=== PATIENT | male | born 1950 | race African-American/Black ===

== ENCOUNTER 2017-02-20 06:38 | Outpatient (CLI) | payer MEDICARE, MEDICAID ==
[~2017-02-20] VITALS: Ht 177.8 cm; Wt 88.6 kg
--- NOTE | ~2017-02-20 | HEMODYNAMI ---
PATIENT:ELIO COHEN MEDICAL RECORD: [id number] : 54 LOCATION:D.CAT ADMISSION DATE: 02/20/17 Generatedon:02/20/20179:20 Patient name: ELIO COHEN Patient #: [id number] SSN: D OB: 1950 Date of study: 02/20/2017 Page: Of Hemodynamic Procedure Report Patient Data Patient Demographics Procedure consent was obtained First Name: ELIO Gender: Male Last Name: VICKI : 1950 Middle Initial: MADAN Age: 66 year(s) Patient #: [id number] Race: Black Additional ID: [id number] Contact details Address: [address] [place] [address] State: [place] City: [facility] Zip code: [address] Past Medical History Allergies Allergen Reaction Date Comments Reported Other allergy 02/20/2017 LEXAPRO Admission Admission Data Admission Date: 02/20/2017 Admission Time: 6:38 Height (in.): 70 BSA: 2.06 (m2) Height (cm.): 177.8 BMI: 27.98 (kg/m2) Weight (lbs.): 195 Weight (kg.): 88.45 Lab Results Lab Result Date: 02/20/2017 Lab Result Time: 7:45 Biochemistry Name Units Result Min Max BUN mg/dl 17 --(---*)-- 7 18 Creatinine mg/dl 1.4 --(----)*- 0.6 1.3 CBC Name Units Result Min Max Hematocrit % 41.2 -*(----)-- 42 54 Hemoglobin g/dl 14 --(*---)-- 13.5 17.5 Procedure Procedure Types Cath Procedure Diagnostic Procedure [facility] ED w/Coronaries Miscellaneous Procedures Moderate Sedation up to 15 minutes Procedure Description Procedure Date Procedure Date: 02/20/2017 Procedure Start Time: 9:08 Procedure End Time: 9:19 Procedure Staff Name Function Daquan Varela MD Performing Physician Nyla Torres RN Nurse Yemi Francis RT Monitor Odilon Dutton RT Scrub Procedure Data Cath Procedure Fluoroscopy Diagnostic fluoroscopy Total fluoroscopy Time: 1.6 time: 1.6 min min Diagnostic fluoroscopy Total fluoroscopy dose: 415 dose: 415 mGy mGy Contrast Material Contrast Material Type Amount (ml) Isovue 300 57 Entry Location Entry Primary Successful Side Size Upsize Upsize Entry Closure Arango ccessful Closure Location (Fr) 1 (Fr) 2 (Fr) Remarks Device Remarks Radial Right 6 Fr Mechanical artery Short Compression Estimated blood loss: 5 ml Diagnostic catheters Device Type Used For End Catheter Placement Terumo 5Fr Jonathan 110cm Procedure catheter Procedure Complications No complications Procedure Medications Medication Administration Route Dosage Oxygen NC 2 l/min Heparin Flush Bag added to field 2 bags (1000units/500ml NS) Lidocaine 2% added to field 20 Radial Cocktail added to field 1 syringe (Verapomil 2mg/Nitro 400mcg/Heparin 1500units) Versed I.V. 1 mg Fentanyl I.V. 50 mcg Radial Cocktail I.A. 1 syringe (Verapomil 2mg/Nitro 400mcg/Heparin 1500units) Versed I.V. 0.5 mg Fentanyl I.V. 25 mcg Hemodynamics Rest BSA: 2.06 (m2) HGB: 14 (g/dl) O2 Consumption: Estimated: 203.29 (ml/min) O2 Cons umption indexed: Estimated:98.68 (ml/min/m) Heart Rate: 22 (bpm) Pressure Samples Time Site Value (mmHg) Purpose Heart Use Rate(bpm) 9:12 LV 88/3,13 Snapshot 63 9:13 AO 84/52(66) Pullback 49 Gradients Valve Time Site Site 2 Mean SEP/DFP Peak To Heart Use 1 (mmHg) (sec/min) Peak Rate (mmHg) (bpm) Aortic 9:13 LV AO 20 5 49 84/52(66) Calculations Valve P-P Mean Valve Index Valve Source Name Gradient Area Flow (cm2) Aortic 20 20 Snapshots Pre Cath Intra NCS Post Cath Vital Signs Time Heart Resp SPO2 NIBP Rhythm Pain Sedation Rate (ipm) (%) (mmHg) Status Level (bpm) 8:52:54 55 15 99 121/81(94) NSR 0 (11) 10(A) , No pain 8:57:00 53 17 100 109/83(93) NSR 0 (11) 10(A) , No pain 9:01:04 53 17 99 107/74(90) NSR 0 (11) 10(A) , No pain 9:05:12 53 16 96 106/61(77) NSR 0 (11) 10(A) , No pain 9:09:17 54 16 95 98/64(75) NSR 0 (11) 9(A) , No pain 9:13:25 58 16 95 83/49(77) NSR 0 (11) 9(A) , No pain 9:17:25 58 16 96 101/54(68) NSR 0 (11) 9(A) , No pain Medications Time Medication Route Dose Verified Delivered Reason Notes E ffectiveness by by 8:50:38 Oxygen NC 2 l/min Daquan Nyla Per Avery Torres RN physician 8:50:46 Heparin Flush added 2 bags Daquan Daquan used for Bag to Avery Varela MD procedure (1000units/500ml field NS) 8:50:54 Lidocaine 2% added 20ml Daquan Daquan used for to vial Avery Varela MD procedure field 8:51:00 Radial Cocktail added 1 Daquan Daquan used for (Verapomil to syringe Avery Varela MD procedure 2mg/Nitro field 400mcg/Heparin 1500units) 9:01:35 Versed I.V. 1 mg Daquan Nyla for sedation Avery Torres RN 9:01:41 Fentanyl I.V. 50 mcg Daquan Nyla for sedation Avery Torres RN 9:07:32 Versed I.V. 0.5 mg Daquan Nyla for sedation Avery Torres RN 9:07:47 Fentanyl I.V. 25 mcg Daquan Nyla for sedation Avery Torres RN 9:11:21 Radial Cocktail I.A. 1 Daquan Daquan for (Verapomil syringe Avery Varela MD vasodilation 2mg/Nitro 400mcg/Heparin 1500units) Procedure Log Time Note 8:34:57 Odilon Dutton RT(R) sent for patient. Start room use. 8:34:58 Time tracking: Regular hours 8:35:01 Plan of Care:Hemodynamics will remain stable., Cardiac rhythm will remain stable., Comfort level will be maintained., Respiratory function will remain adequate., Patient/ family verbilizes understanding of procedure., Procedure tolerated without complication., Recovers from procedure without complications.. 8:47:45 Patient received from Pre/Post Procedure Room to CCL 2 Alert and oriented. Tansferred to table in Supine position. 8:47:46 Warm blankets applied, and rita hugger turned on for patient comfort. 8:47:47 Correct patient and procedure confirmed by team. 8:47:48 Signed procedure consent form obtained from patient. 8:47:49 ECG and BP/O2 sat monitors applied to patient. 8:50:27 Vital chart was started 8:50:38 Oxygen 2 l/min NC was administered by Nyla Torres RN; Per physician; 8:50:46 Heparin Flush Bag (1000units/500ml NS) 2 bags added to field was administered by Daquan Varela MD; used for procedure; 8:50:54 Lidocaine 2% 20ml vial added to field was administered by Daquan Varela MD; used for procedure; 8:51:00 Radial Cocktail (Verapomil 2mg/Nitro 400mcg/Heparin 1500units) 1 syringe added to field was administered by Daquan Varela MD; used for procedure; 8:56:11 Baseline sample Acquired. 8:56:24 Rhythm: sinus bradycardia 8:56:26 Full Disclosure recording started 8:56:55 H&P Date Dictated: 02/20/2017 Within 30 days and on chart.. 8:57:00 Pre-procedure instructions explained to patient. 8:57:01 Pre-op teaching completed and patient verbalized understanding. 8:57:04 Family unavailable. 8:57:07 Patient NPO since Midnight. 8:57:44 Patient allergic to Other allergyLEXAPRO 8:57:51 Is the patient allergic to Iodine/contrast media? No. 8:57:55 Is patient on blood thinner?No 8:57:59 Patient diabetic? No. 8:58:02 ----Pre-sedation anethsthesia assessment.---- 8:58:05 Previous problem with sedation/anesthesia? No ? 8:58:07 Snore? Yes 8:58:09 Sleep apnea? No 8:58:10 Deviated septum? No 8:58:11 Opens mouth fully? Yes 8:58:12 Sticks out tongue? Yes 8:58:15 Airway obstruction? No ? 8:58:18 Dentures? No ? 8:58:28 Modified Zuhair's test Ulnar < 7 seconds 8:58:31 Patient pain scale 0/10 ?. 8:58:37 IV patent on arrival in left forearm with 0.9% NaCl at [facility]. 9:00:29 Lab Result : BUN 17 mg/dl 9:00:29 Lab Result : Hemoglobin 14 g/dl 9:00:29 Lab Result : Creatinine 1.4 mg/dl 9:00:29 Lab Result : Hematocrit 41.2 % 9:00:32 Lab results completed and on chart. 9:00:34 Right Radial & Right Groin area was prepped with chlora-prep and draped in sterile fashion 9:00:35 Alarms reviewed by R. N. 9:00:35 Sharps counted by scrub and verified by R.N. 9:00:42 Use device set Radial Dx 9:00:43 MBrace Wrist Support opened to sterile field. 9:00:43 Tegaderm 4 x 4 opened to sterile field. 9:00:45 Acist Hand Control opened to sterile field. 9:00:45 Acist Manifold opened to sterile field. 9:00:46 Acist Syringe opened to sterile field. 9:00:47 Medline Cath Pack opened to sterile field. 9:00:47 Bag Decanter opened to sterile field. 9:00:48 Terumo 6Fr Slender Glidesheath opened to sterile field. 9:00:48 St See 260cm J .035 wire opened to sterile field. 9:00:57 Cook 21G 4cm Radial Needle opened to sterile field. 9:01:04 Physician arrived 9:01:05 --------ALL STOP TIME OUT------ 9:01:05 Final Timeout: patient, procedure, and site verified with staff and physician. All members of the team are in agreement. 9:01:07 Right Radial & Right Groin site verified by team. 9:01:10 Physical assessment completed. ASA score P 2 - A patient with mild systemic disease as per Daquan Varela MD. 9:01:12 Sedation plan: IV Moderate Sedation Versed, Fentanyl 9::35 Versed 1 mg I.V. was administered by Nyla Hitchcock RN; for sedation; 9:01:41 Fentanyl 50 mcg I.V. was administered by Nyla Torres RN; for sedation; 9::54 Patient Weight : 88.45 kg 9:02:02 Patient Height : 177.8 cm 9:07:32 Versed 0.5 mg I.V. was administered by Nyla Torres RN; for sedation; 9::47 Fentanyl 25 mcg I.V. was administered by Nyla Torres RN; for sedation; 9:08:09 Zero performed for pressure channel P1 9:08:18 Procedure started. 9:08:27 Local anesthetic to right radial artery with Lidocaine 2% by Daquan Varela MD.INITIAL ACCESS ONLY 9:10:46 A 6 Fr Short sheath was inserted into the Right Radial artery 9:11:21 Radial Cocktail (Verapomil 2mg/Nitro 400mcg/Heparin 1500units) 1 syringe I.A. was administered by Daquan Varela MD; for vasodilation; 9:11:23 A [employer] 5Fr Jonathan 110cm catheter was advanced over the wire and used for Procedure. 9:13:03 LV gram done using ROSSI 9:13:07 Injector settings: Ml/sec: 5, Volume: 15, 9:13:21 EF : 45 % 9:14:03 RCA angiography performed. 9:15:22 LCA angiography performed. 9:16:02 Catheter removed. 9:16:49 Sheath removed intact; hemostasis achieved with Mechanical Compression to the Right Radial artery. 9:16:51 Procedure ended.(Physican Out) 9:17:00 Fluoroscopy time 01.60 minutes. 9:17:05 Fluoroscopy dose: 415 mGy 9:17:05 Flurop Dose total: 415 9:17:56 Contrast amount:Isovue 300 57ml. 9:17:57 Sharps counted by scrub and verified by R.N. 9:17:59 TR band inflated with 12cc of air. 9:18:00 Insertion/operative site no bleeding no hematoma. 9:18:10 Post right radial artery:stable, soft, clean and dry 9:18:13 Post-procedure physical assessment completed. ASA score P 2 - A patient with mild systemic disease as per Daquan Varela MD. 9:18:15 Post procedure rhythm: unchanged. 9:18:18 Estimated blood loss: 5 ml 9:18:19 Post procedure instruction explained to patient.Patient verbalizes understanding. 9:18:19 Patient needs reinforcement of post procedure teaching. 9:19:43 Procedure and supply charges have been captured, reviewed, submitted and are correct. 9:19:45 Procedure Complication : No complications 9:19:47 Vital chart was stopped 9:19:48 See physician's report for complete and final results. 9:19:54 Report given to Pre/Post Procedure Room. 9:19:57 Patient transfered to Pre/Post Procedure Room with Stretcher. 9:19:59 Procedure ended. 9:19:59 Full Disclosure recording stopped 9:20:12 End room use (Document Last) Device Usage Item Name Manufacture Quantity Catalog Hospital Part Current Minimal Lot# / Number Charge Number Stock Stock Serial# Code [facility] 1 140-0250-00 [id number] 5 Wrist Vascular Support Dynamics Tegaderm 4 3M 1 [id number] [id number] 577507 5 x 4 Acist Hand Acist 1 08819 963059 445588 089052 5 Control [employer] Inc Acist Acist 1 52049 174545 258427 235397 5 Manifold [employer] Inc Acist Acist 1 61060 263262 431408 074387 20 Syringe Medical [employer] Inc Medline Cardinal 1 [id number] 037252 30585 133050 5 Cath Pack Health Bag Microtek 1 2002S 927666 19562 268356 5 [employer] Terumo 6Fr Terumo 1 [id number] 931047 822562 976145 [address] See 1 [id number] 958624 028265 398170 30 260cm J .035 wire Cook 21G Cook Medical 1 [id number] 767413 151505 658983 5 4cm Radial Needle Terumo 5Fr Terumo 1 [id number] 022260 942238 638157 5 Jonathan 110cm catheter Signature Audit Lillian Stage Time Signature Unsigned Intra-Procedure 02/20/2017 Yemi Francis 9:20:37 AM RT(R) Signatures Monitor : Yemi Francis RT Signature : Date : Time : [facility] [address] [place] [address]
[2017-02-20] MEDS ORDERED: BENICAR HCT 40-1 TAB PO (07:18)
[2017-02-20] MEDS ORDERED: DESERYL100 MG PO (07:19)
[2017-02-20] MEDS ORDERED: COREG6.25 MG PO (07:19)
[2017-02-20] MEDS ORDERED: LAMICTAL100 MG PO (07:19)
[2017-02-20] MEDS ORDERED: LOVASTATIN20 MG PO (07:20)
[2017-02-20] MEDS ORDERED: SINGULAIR10 MG PO (07:20)
[2017-02-20] MEDS ORDERED: FLUTICASONE PRO16 GM NASAL (07:20)
[2017-02-20] MEDS ORDERED: FISH OIL 1,0001 CA1 PO (07:21)
[2017-02-20] MEDS ORDERED: BAYER CHEWABLE81 MG PO (07:21)
[2017-02-20] MEDS ORDERED: HYDROCODONE-APA1 TAB PO (07:21)
[2017-02-20] MEDS ORDERED: DHEA25 M1 PO (07:22)
[2017-02-20] MEDS ORDERED: FLINTSTONE1 TAB.CHEW PO (07:22)
[2017-02-20] MEDS ORDERED: VISTARIL25 MG PO (07:23)
[2017-02-20 07:24] VITALS: BP 119/78; Ht 177.8 cm; Wt 88.6 kg
[2017-02-20 07:49] LABS: BASOPHILS 0.2 % (0-2); EOSINOPHILS 5.7 % (0-7); HEMATOCRIT 41.2 % (42.0-54.0); LYMPHOCYTES 31.6 % (15-50); MCH 30.7 pg (26.0-34.0); MCV 90.4 fL (80.0-100.0); MEAN PLATELET VOLUME 10.4 fL (7.4-10.4); MONOCYTES 11.9 % (2-11); NEUTROPHILS 50.6 % (40-80); PLATELET COUNT 161 10x3/uL (130-400); RBC 4.56 10x6/uL (4.20-6.10); RDW 12.9 % (11.5-14.5); WBC 5.1 10x3/uL (4.8-10.8)
[2017-02-20 07:56] LABS: CALCIUM 8.6 mg/dL (8.5-10.1); CARBON DIOXIDE 27.7 mmol/L (21.0-32.0); CREATININE - SERUM 1.4 mg/dL (0.6-1.3); POTASSIUM - SERUM 3.7 mmol/L (3.5-5.1)
--- NOTE | 2017-02-20 09:50 | NUR ---
2L NC, NO RESP DISTRESS NOTED. NO C/O CHEST PAIN OR NAUSEA. RIGHT WRIST TRACELET IN PLACE, NO BLEEDING OR HEMATOMA NOTED. VSS.
--- NOTE | 2017-02-20 10:20 | NUR ---
2L NC, NO RESP DISTRESS NOTED. VSS. RIGHT WRIST TRACELET IN PLACE, NO BLEEDING NOTED. NO C/O CHEST PAIN OR NAUSEA. WILL CONTINUE TO MONITOR.
--- NOTE | 2017-02-20 10:35 | NUR ---
QUIETLY RESTING WITH EYES CLOSED. VSS. 2L NC, NO RESP DISTRESS NOTED. BRIEFCASE SEWER SHOWS SB @ 51. RIGHT WRIST TRACLET CDI, NO BLEEDING NOTED. CALL LIGHT WITHIN REACH.
--- NOTE | 2017-02-20 11:09 | NUR ---
2CC OF AIR REMOVED FROM TRACELET. NO BLEEDING NOTED.
--- NOTE | 2017-02-20 11:20 | NUR ---
2CC OF AIR REMOVED FROM TRACELET. NO BLEEDING NOTED.
--- NOTE | 2017-02-20 11:35 | NUR ---
3CC OF AIR REMOVED FROM TRACELET.
--- NOTE | 2017-02-20 11:47 | NUR ---
2CC OF AIR REMOVED FROM TRACELET, NO BLEEDING NOTED. LEFT HAND PIV D/C'D WITH CATHETER INTACT, BAND AID TO SITE. UP TO BEDSIDE TO GET DRESSED.
--- NOTE | 2017-02-20 11:55 | NUR ---
UP TO RESTROOM TO VOID.
--- NOTE | 2017-02-20 12:00 | NUR ---
DISCHARGE INSTRUCTIONS GIVEN, VERBALIZED UNDERSTANDING. REMAINING AIR REMOVED FROM TRACELET AND DRESSING PLACED TO SITE.
--- NOTE | 2017-02-20 12:07 | NUR ---
TAKEN OUT VIA WHEELCHAIR BY CATH RESIDENT ASSISTANT CNA. LEFT FACILITY WITH FAMILY MEMBER AND ALL PERSONAL BELONGINGS.
--- NOTE | 2017-02-27 10:59 | OP ---
PATIENT NAME: ELIO COHEN MEDICAL RECORD: [id number] :54 LOCATION:D.CAT ADMISSION DATE: SURGEON: ADDIS LAGUERRE M.D. DATE OF OPERATION: 02/20/2017 PROCEDURES PERFORMED: 1. Selective coronary angiography. 2. Left heart catheterization with ventriculogram. INDICATION: A 66-year-old gentleman presents with cardiomyopathy and abnormal stress test revealing inferior wall ischemia. EQUIPMENT USED: A 5-[employer] Lucian Jonathan catheter. TECHNIQUE: A 5-St Lucian sheath was inserted in retrograde fashion in the right radial artery. Next, selective coronary angiography was performed in standard views using 5-St Lucian Jonathan catheter. Left heart catheterization was performed using a Jonathan catheter as well. CORONARY ANATOMY: 1. Left main: Left main trunk is moderate in caliber. It gives rise to the LAD and circumflex. It is angiographically normal. 2. LAD: This is a large-caliber vessel extending to the apex. It gives rise to a moderate-caliber diagonal proximal segment. The LAD and diagonal are angiographically normal. 3. Circumflex: This vessel is moderate in caliber. It supplies the lateral branch in the proximal segment. This vessel is a smooth-walled vessel and angiographically normal. 4. Right coronary: This vessel is moderate in caliber and dominant. It actually arises from the noncoronary cusp. It is a smooth-walled vessel and angiographically normal. 5. Left ventricle: Left ventricle is upper limits of normal size. There is mild LV dysfunction noted. Estimated ejection is in the order of 45%. IMPRESSION: 1. Normal coronary arteries. 2. Mild left ventricular dysfunction. RECOMMENDATIONS: We will continue with medical management at this point. TRANSINT:[id number] Voice Confirmation ID: [id number] DOCUMENT ID: [id number] ADDIS LAGUERRE M.D. at 1059 CC: [id number] DICTATION DATE: 02/20/17921 SEGMENTAL WALL INSTALLER: 02/20/17 2020 [facility] CLI 02/20/17 [facility] [address] [place] [address]
== END 2017-02-20 12:07 | disposition home or self-care (01) ==
LOC: D.CATH 06:38
PROVIDERS: Internal Medicine Cardiovascular Disease
DX: I42.9 Cardiomyopathy, unspecified (principal); R94.39 Abnormal result of other cardiovascular function study